=== PATIENT | female | born 1980 | race African-American/Black ===

== ENCOUNTER 2021-01-12 21:08 | Emergency (ER) | payer OTHER ==
[~2021-01-12] VITALS: Ht 152.4 cm; Wt 57.0 kg
--- NOTE | 2021-01-12 22:16 | NUR ---
PT PRESENTS TO ER FOR CHRONS DISEASE FLARE UP, PT HAS BEEN EXPERIENCING N/V/D FOR 3 DAYS, PT REPORTS OF NO OTHER SYMPTOMS AT THIS TIME
[2021-01-12] MEDS ORDERED: ONDANSETRON 2MG/ML, 2ML ONE (23:17)
[2021-01-12] MEDS ORDERED: MORPHINE SULFATE 4 MG/ML, 1ML ONE (23:18)
[2021-01-12] MEDS: MORPHINE SULFATE 4 MG/ML, 1ML IVPush PRN (23:19)
[2021-01-12 23:24] LABS: BASOPHILS % (AUTO) 1 % (0-1); EOSINOPHILS % (AUTO) 2 % (1-7); LYMPHOCYTES % (AUTO) 21 % (22-44); MEAN CORPUSCULAR HEMOGLOBIN 27.8 pg (27.0-34.8); MEAN CORPUSCULAR HGB CONC 33.4 g/dL (32.4-35.8); MEAN PLATELET VOLUME 8.4 fL (7.4-10.4); MONOCYTES % (AUTO) 12 % (2-9); NEUTROPHILS % (AUTO) 65 % (42-75); PLATELET COUNT 355 x10^3/uL (130-400); RED BLOOD COUNT 4.27 x10^6/uL (3.82-5.3); RED CELL DISTRIBUTION WIDTH 13.3 % (9.6-15.2)
[2021-01-12] MEDS ORDERED: PLEASE ENTER ALLERGIES MC SCH (23:30)
[2021-01-12] MEDS ORDERED: ONDANSETRON 2MG/ML, 2ML IVPush ONE (23:30)
[2021-01-12] MEDS ORDERED: SODIUM CHLORIDE 0.9% 1,000ML IVBOLUS ONE (23:30)
[2021-01-12 23:33] LABS: ALANINE AMINOTRANSFERASE 17 U/L (12-78); ANION GAP 7 mmol/L (5-15); CHLORIDE 105 mmol/L (98-107); CREATININE 0.68 mg/dL (0.55-1.02)
[2021-01-12 23:38] LABS: ALKALINE PHOSPHATASE 74 U/L (45-117); BILIRUBIN,TOTAL 0.2 mg/dL (0.2-1.0); TOTAL PROTEIN 8.6 g/dL (6.4-8.2)
[2021-01-13 00:37] VITALS: BP 128/87
[2021-01-13] MEDS ORDERED: POTASSIUM CHLORIDE 20 MEQ PACKET ONE (00:52)
[2021-01-13] MEDS ORDERED: MORPHINE SULFATE 4 MG/ML, 1ML ONE (00:53)
[2021-01-13] MEDS: MORPHINE SULFATE 4 MG/ML, 1ML IVPush PRN (00:59)
[2021-01-13] MEDS ORDERED: POTASSIUM CHLORIDE 20 MEQ PACKET PO ONE (01:00)
[2021-01-13] MEDS ORDERED: OMNIPAQUE 350 MG/ML, 100ML BOTTLE ONE (02:46)
== END 2021-01-13 01:29 | disposition home or self-care (01) ==
LOC: ED 22:00
DX: K50.10 Crohn's disease of large intestine without complications (principal); R10.32 Left lower quadrant pain; R11.2 Nausea with vomiting, unspecified; E86.0 Dehydration; R19.7 Diarrhea, unspecified; E87.6 Hypokalemia; I10 Essential (primary) hypertension
CPT/HCPCS: 36415; 74177; 80053; 83690; 84703; 85025; 96361; 96374; 96375; 96376; 99285; J2270; J2405; J7030; J7512; Q9967

== ENCOUNTER 2021-01-21 20:55 | Emergency (ER) | payer OTHER ==
[~2021-01-21] VITALS: Ht 152.4 cm; Wt 56.2 kg
[2021-01-21 21:30] LABS: BASOPHILS % (AUTO) 1 % (0-1); EOSINOPHILS % (AUTO) 1 % (1-7); LYMPHOCYTES % (AUTO) 18 % (22-44); MEAN CORPUSCULAR HEMOGLOBIN 27.4 pg (27.0-34.8); MEAN CORPUSCULAR HGB CONC 33.2 g/dL (32.4-35.8); MEAN PLATELET VOLUME 8.3 fL (7.4-10.4); MONOCYTES % (AUTO) 12 % (2-9); NEUTROPHILS % (AUTO) 69 % (42-75); PLATELET COUNT 411 x10^3/uL (130-400); RED BLOOD COUNT 4.09 x10^6/uL (3.82-5.3)
[2021-01-21] MEDS ORDERED: ONDANSETRON 2MG/ML, 2ML IVPush ONE (21:30)
[2021-01-21] MEDS ORDERED: SODIUM CHLORIDE FLUSH 10ML SYR IVF ONE (21:30)
[2021-01-21] MEDS ORDERED: SODIUM CHLORIDE 0.9% 1,000ML IVBOLUS ONE (21:30)
[2021-01-21 21:39] LABS: ALANINE AMINOTRANSFERASE 17 U/L (12-78); ALBUMIN 3.1 g/dL (3.4-5.0); ANION GAP 6 mmol/L (5-15); CALCIUM 9.3 mg/dL (8.5-10.1); CHLORIDE 104 mmol/L (98-107); CREATININE 0.63 mg/dL (0.55-1.02)
[2021-01-21 21:43] LABS: ALKALINE PHOSPHATASE 77 U/L (45-117); BILIRUBIN,TOTAL 0.3 mg/dL (0.2-1.0); TOTAL PROTEIN 8.6 g/dL (6.4-8.2)
--- NOTE | 2021-01-21 22:40 | NUR ---
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
--- NOTE | 2021-01-21 22:50 | NUR ---
BREAK RN:PT HERE FOR N/V/D FOR MULTIPLE DAYS. PT HAS A HX OF CHRONS. PT PLACED ON PULSE OX. AT BEDSIDE
[2021-01-21] MEDS ORDERED: MORPHINE SULFATE 4 MG/ML, 1ML ONE (23:04)
[2021-01-21] MEDS ORDERED: ONDANSETRON 2MG/ML, 2ML ONE (23:04)
[2021-01-22] MEDS: MORPHINE SULFATE 4 MG/ML, 1ML IVPush PRN ×2 (00:07→00:59)
--- NOTE | 2021-01-22 00:10 | NUR ---
PT MEDICATED PER MAR, IV ESTABLISHED, NAD, RESTING ON GURNEY, APPEARS COMFORTABLE, BED IN LOWEST, RAILS ENGAGED, WCTM.
[2021-01-22] MEDS ORDERED: MORPHINE SULFATE 4 MG/ML, 1ML ONE (00:56)
--- NOTE | 2021-01-22 01:03 | NUR ---
PT MEDICATED PER MAR FOR PAIN, NAD, NO OTHER CHANGES IN CONDITION. PROVIDED WATER FOR PO CHALLENGE, DENIES ADDITIONAL QUESTIONS OR NEEDS AT THIS TIME, WCTM.
[2021-01-22 02:09] VITALS: BP 135/86
--- NOTE | 2021-01-22 02:31 | NUR ---
Patient given discharge instructions and they have confirmed that they understand the instructions. Patient ambulatory with steady gait. NAD, all questions answered appropriately, denies additional needs at this time. No personal belongings left in room after discharge.
== END 2021-01-22 02:33 | disposition home or self-care (01) ==
LOC: ED 23:04
DX: K50.10 Crohn's disease of large intestine without complications (principal); R10.9 Unspecified abdominal pain; R11.2 Nausea with vomiting, unspecified; R19.7 Diarrhea, unspecified; I10 Essential (primary) hypertension
CPT/HCPCS: 36415; 74021; 80053; 83690; 84703; 85025; 96361; 96374; 96375; 96376; 99285; J2270; J2405; J7030; J7512